=== PATIENT | male | born 2000 | race Caucasian/White ===

== ENCOUNTER 2023-01-01 10:19 | Outpatient (REF) | payer MEDICAID, SELFPAY ==
[2023-01-01 11:50] LABS: MANUAL DIFF FLAG NO
[2023-01-01 12:09] LABS: Basophils Absolute Auto 0.1 X10*3/uL (0.0-0.2); Basophils Percent Auto 0.7 % (0-2); Eosinophils Absolute Auto 0.1 X10*3/uL (0.0-0.4); Eosinophils Percent Auto 1.5 % (0-4); Hematocrit 40.9 % (42.0-52.0); Hemoglobin 13.4 g/dl (14.0-18.0); Imm Gran Abs Auto 0.04 X10*3/uL (0.00-0.03); Imm Gran Pct Auto 0.5 % (0.0-0.4); Lymphocytes Absolute Auto 2.2 X10*3/uL (1.2-4.9); Lymphocytes Percent Auto 29.3 % (20-40); Mean Corpuscular HGB Conc 32.8 g/dl (31.0-36.0); Mean Corpuscular Hemoglobin 29.5 pg (27.0-33.0); Mean Corpuscular Volume 89.9 fL (80.0-98.0); Mean Platelet Volume 10.7 fL (9.4-12.4); Monocytes Absolute Auto 0.7 X10*3/uL (0.1-1.2); Monocytes Percent Auto 9.7 % (2-11); Neutrophils Absolute Auto 4.4 x10*3/uL (2.0-8.3); Neutrophils Percent Auto 58.3 % (45-73); Platelet Count 271 X10*3/uL (160-400); Red Blood Count 4.55 X10*6/uL (4.60-5.80); White Blood Count 7.5 X10*3/uL (4.8-10.8)
[2023-01-01 12:26] LABS: Estimated Average Glucose 97 mg/dL
[2023-01-01 13:00] LABS: HIV AB/AG Nonreactive (Nonreactive); HIV Num 1 0.05 S/CO (0.00-0.99)
[2023-01-01 13:08] LABS: Alanine Aminotransferase 33 U/L (0-40); Albumin Level 4.1 g/dL (3.5-5.0); Alkaline Phosphatase 87 U/L (39-117); Aspartate Amino Transferase 23 U/L (5-37); Bilirubin Direct 0.2 mg/dL (0.0-0.5); Bilirubin Total 0.5 mg/dL (0.0-1.0); Cholesterol 171 mg/dL; HDL Cholesterol 43 mg/dL; LDL Cholesterol Calculated 112 mg/dl; Total Protein 7.7 g/dL (6.5-8.0); Triglycerides 83 mg/dL; ~HepC Num1 0.08 S/CO (0.00-0.79); ~Hepatitis C Antibody Nonreactive (Nonreactive)
[2023-01-01 13:11] LABS: Ferritin 86 ng/mL (20-250); Free T4 (Free Thyroxine) 1.04 ng/dL (0.71-1.85); Vitamin D 25-OH Total 7.5 ng/mL (>30)
[2023-01-01 13:15] LABS: Vitamin B12 306 pg/mL (200-900)
[2023-01-01 18:28] LABS: CT PCR NOT DETECTED (Not Detect.); NG PCR NOT DETECTED (Not Detect.)
== END 2023-01-01 10:20 | disposition home or self-care (01) ==
LOC: HO.HHCL 10:19
PROVIDERS: Visit Provider Family Medicine
DX: Z11.4 Encounter for screening for human immunodeficiency virus [HIV] (principal); Z11.3 Encounter for screening for infections with a predominantly sexual mode of transmission; E66.01 Morbid (severe) obesity due to excess calories; D64.9 Anemia, unspecified
CPT/HCPCS: 0353U; 80061; 80076; 82306; 82607; 82728; 83036; 84439; 85025; 86803; 87389